=== PATIENT | male | born 1950 | race Two or more races ===

== ENCOUNTER 2018-04-30 11:14 | Emergency (ER) | payer OTHER ==
[~2018-04-30] VITALS: Ht 167.6 cm; Wt 62.6 kg
[2018-04-30 11:18] VITALS: BP 127/72
--- NOTE | 2018-04-30 11:25 | NUR ---
ambulatory upon arrival no acute distress - waiting for MD ibanez
[2018-04-30] MEDS ORDERED: AMOX/CLAVULANATE 875 MG TABLET ONE (11:56)
[2018-04-30] MEDS ORDERED: TDAP [DIPH/PERTUSSIS/TET] 0.5 ML VIAL IM ONE ×2 (11:56→12:00)
[2018-04-30] MEDS ORDERED: AMOX/CLAVULANATE 875 MG TABLET PO ONE (12:00)
--- NOTE | 2018-04-30 12:33 | NUR ---
For discharge-ACI given home ambulatory Stable
== END 2018-04-30 12:35 | disposition home or self-care (01) ==
LOC: ER 11:17
DX: S61.251A Open bite of left index finger without damage to nail, initial encounter (principal); E11.9 Type 2 diabetes mellitus without complications; W50.3XXA Accidental bite by another person, initial encounter; Y93.89 Activity, other specified; Y92.89 Other specified places as the place of occurrence of the external cause; Y99.8 Other external cause status
CPT/HCPCS: 36415; 86706; 86803; 87806; 90715; A4606; Z7610

== ENCOUNTER 2018-07-27 12:47 | Emergency (ER) | payer OTHER ==
[~2018-07-27] VITALS: Ht 165.1 cm; Wt 66.7 kg
[2018-07-27 12:47] VITALS: BP 135/75
[2018-07-27] MEDS ORDERED: KETOROLAC TROMETHAMINE INJ 60 MG/2 ML VIAL IM ONE ×2 (13:12→13:30)
== END 2018-07-27 13:43 | disposition home or self-care (01) ==
LOC: ER 12:48
DX: M54.6 Pain in thoracic spine (principal); E11.9 Type 2 diabetes mellitus without complications
CPT/HCPCS: 96372; 99283; A4606; J1885

== ENCOUNTER 2018-10-10 10:30 | Outpatient (CLI) | payer BC ==
[2018-10-10 11:19] LABS: APPEARANCE,URINE CLEAR (CLEAR); BASOPHILS % (AUTO) 0.9 % (0.0-2.0); BILIRUBIN,URINE NEGATIVE (NEGATIVE); BLOOD, URINE TRACE-INTA Ery/uL (NEGATIVE); COLOR,URINE YELLOW (YELLOW); EOSINOPHILS % (AUTO) 0.7 % (0.0-6.0); HEMATOCRIT 43 % (39-51); HEMOGLOBIN 14.8 g/dL (13.5-17.5); KETONES,URINE NEGATIVE (NEGATIVE); LEUKOCYTE ESTERASE ,URINE NEGATIVE (NEGATIVE); LYMPHOCYTES # (AUTO) 1.2 /CMM (0.8-4.8); LYMPHOCYTES % (AUTO) 23.4 % (20.0-44.0); MEAN CORPUSCULAR HGB CONC 34 g/dl (31.0-36.0); MEAN CORPUSCULAR VOLUME 90 fL (80-96); MONOCYTES # (AUTO) 0.5 /CMM (0.1-1.30); NEUTROPHILS # (AUTO) 3.3 /CMM (1.8-8.9); NITRITE, URINE NEGATIVE (NEGATIVE); PLATELET COUNT (AUTO) 244 /CMM (150-450); PROTEIN,URINE NEGATIVE (NEGATIVE); UGLUCOSE NEGATIVE (NEGATIVE); UROBILINOGEN,URINE 0.2 EU/dL (0.2); WHITE BLOOD COUNT (AUTO) 5.2 K/uL (4.3-11.0)
[2018-10-10 11:31] LABS: BACTERIA,URINE Rare /HPF (None Seen); RBC,URINE 0-2 /HPF (0-2); SQUAMOUS EPITHELIAL CELL,UR 0-2 /HPF (None Seen); WBC,URINE 0-2 /HPF (0-3)
[2018-10-10 12:05] LABS: ALBUMIN 3.8 g/dL (3.4-5.0); BILIRUBIN,TOTAL 0.8 mg/dL (0.2-1.0); CREATININE 0.7 mg/dL (0.6-1.3); TOTAL PROTEIN, SERUM 7.3 g/dL (6.4-8.2)
[2018-10-10 12:18] LABS: FREE T4 (FREE THYROXINE) 1.14 ng/dL (0.76-1.46); PROSTATE SPECIFIC ANTIGEN SCR 3.83 ng/mL (0.00-4.00); THYROID STIMULATING HORMONE 3.186 uIU/mL (0.358-3.74); URIC ACID 4.5 mg/dL (2.6-7.2)
[2018-10-12 03:11] LABS: FOLIC ACID 11.8 ng/mL (>3.0)
== END 2018-10-10 23:59 | disposition home or self-care (01) ==
LOC: LAB 10:30
PROVIDERS: ATTEND Legal Medicine
DX: Z00.00 Encounter for general adult medical examination without abnormal findings (principal)
CPT/HCPCS: 36415; 80053-TC; 80061-TC; 81000-TC; 82306; 82626; 82728-TC; 83540-TC; 84153-TC; 84402; 84403; 84439-TC; 84443-TC; 84550-TC; 85025-TC